=== PATIENT | female | born 1990 | race Caucasian/White ===

== ENCOUNTER 2018-08-27 14:02 | Emergency (ER) | payer MEDICAID, OTHER ==
[~2018-08-27] VITALS: Ht 160 cm; Wt 52.2 kg
[2018-08-27 14:35] VITALS: BP 127/66
[2018-08-27] MEDS ORDERED: ALBUTEROL SULF 2.5 MG/0.5ML(0.5%) NEB SOLN NEB ONE (14:45)
[2018-08-27] MEDS ORDERED: IPRATROPIUM BROM 0.5 MG/2.5ML INH SOL NEB ONE (14:45)
== END 2018-08-27 15:58 | disposition home or self-care (01) ==
LOC: ER 14:08
DX: J45.901 Unspecified asthma with (acute) exacerbation (principal)
CPT/HCPCS: 71046; 94640; 99283; J7611; J7644

== ENCOUNTER 2020-06-10 13:21 | Emergency (ER) | payer MEDICAID ==
[~2020-06-10] VITALS: Ht 160 cm; Wt 54.4 kg
[2020-06-10 13:32] VITALS: BP 114/55
== END 2020-06-10 14:07 | disposition left against medical advice (07) ==
LOC: ER 13:21
DX: J06.9 Acute upper respiratory infection, unspecified (principal); J45.909 Unspecified asthma, uncomplicated